=== PATIENT | female | born 1955 | race African-American/Black ===

== ENCOUNTER 2023-06-04 09:52 | Emergency (ER) | payer OTHER ==
[~2023-06-04] VITALS: Ht 160 cm; Wt 61.0 kg
[2023-06-04 10:00] VITALS: BP 180/98; RESP 20; TEMP 98.7; O2SAT 100
[2023-06-04 10:07] VITALS: PULSE 98
[2023-06-04] MEDS ORDERED: KETOROLAC 30MG/ML VIAL IM ONE (10:45)
[2023-06-04] MEDS ORDERED: HYDROCODONE/ACETAMINOPHEN 5/325MG TABLET PO ONE (10:45)
[2023-06-04] MEDS ORDERED: MELO-104 MT (12:13)
[2023-06-04] MEDS ORDERED: CYCL10TA21 MT (12:13)
[2023-06-04] MEDS ORDERED: KETOROLAC 30MG/ML VIAL IM NR (13:00)
[2023-06-04] MEDS ORDERED: HYDROCODONE/ACETAMINOPHEN 5/325MG TABLET PO NR (13:00)
== END 2023-06-04 14:23 | disposition home or self-care (01) ==
LOC: ER 09:52
DX: M79.601 Pain in right arm (principal); E11.9 Type 2 diabetes mellitus without complications; G62.9 Polyneuropathy, unspecified
CPT/HCPCS: 99283; 96372; J1885